=== PATIENT | female | born 1955 | race Caucasian/White ===

== ENCOUNTER 2022-08-07 14:56 | Emergency (ER) | payer OTHER ==
[~2022-08-07] VITALS: Ht 172.7 cm; Wt 63.5 kg
[2022-08-07 15:02] VITALS: BP 116/66
[2022-08-07 15:31] LABS: APPEARANCE,URINE CLEAR (CLEAR); BILIRUBIN,URINE NEGATIVE (NEGATIVE); COLOR,URINE LIGHT-YELLOW (YELLOW); GLUCOSE, URINE (UA) NEGATIVE (NEGATIVE); KETONES,URINE NEGATIVE (NEGATIVE); LEUKOCYTE ESTERASE ,URINE 500 Leu/uL (NEGATIVE); NITRATE,URINE NEGATIVE (NEGATIVE); OCCULT BLOOD,URINE NEGATIVE (NEGATIVE); PH,URINE 5.5 (5.0-8.0); PROTEIN,URINE NEGATIVE (NEGATIVE); UROBILINOGEN,URINE 0.2 mg/dL (0.2-1.0)
[2022-08-07 15:54] LABS: BACTERIA,URINE RARE /HPF (None Seen); MUCUS,URINE RARE LPF (None Seen); SQUAMOUS EPITHELIAL CELL,UR FEW /HPF (0-2); TRANSITIONAL EPI CELLS,URINE RARE /HPF (None Seen)
[2022-08-07] MEDS ORDERED: GUAIF10 PO (16:33)
[2022-08-07] MEDS ORDERED: P-EP-94 PO (16:33)
[2022-08-07] MEDS ORDERED: AZIT500T2 PO (16:33)
== END 2022-08-07 16:41 | disposition home or self-care (01) ==
LOC: EDH 14:56
DX: J40 Bronchitis, not specified as acute or chronic (principal); E78.5 Hyperlipidemia, unspecified; Z90.89 Acquired absence of other organs; Z85.3 Personal history of malignant neoplasm of breast; Z20.822 Contact with and (suspected) exposure to COVID-19
CPT/HCPCS: 99284; 71045; 87635; 87088; 87880; 87804 ×2; 81001; C9803